=== PATIENT | female | born 1970 | race Hispanic/Latino ===

== ENCOUNTER 2017-03-07 06:25 | Emergency (ER) | payer BC ==
--- NOTE | 2017-03-07 06:35 | PCM.FALL ---
<Marina Salinas - Last Filed: 03/07/17 06:32> Post Fall Progress Note - Post Fall Fall Date: 03/07/17 Fall Time: 05:59 Description of Fall: Patient got lightheaded while watching her father get blood drawn and lost tone and consciousness - Post Fall Exam Skull Exam: Positive for: Scalp wound. Negative for: Scalp hematoma, Scalp depression, Ridge in skull Eye Exam: Positive for: Pupils equal, Pupils reactive Ear Exam: Negative for: Discharge, Bleeding Nose Exam: Negative for: Discharge, Bleeding Skin Exam: Negative for: Colour, Lacerations, Grazes, Bruising Mouth Exam: Negative for: Tongue bitten, Teeth dislodge Neck Exam: Negative for: Tenderness, Tingling, Weakness Spinal Exam: Negative for: Tenderness, Tingling, Weakness Chest Exam: Negative for: Difficulty breathing, Tenderness in collar bones, Tenderness in ribs Abdomen Exam: Negative for: Tenderness Arm Exam: Negative for: Deformity, Alteration in range of movement Leg Exam: Negative for: Deformity, Alteration in range of movement Impression/Plan: Patient taken to ER for further evaluation and management. Recommend head CT to r/o intracranial hematoma. Recommend neuro checks, orthostatic vitals, accucheck. <Vernon Winn - Last Filed: 03/07/17 06:38> Post Fall Progress Note - Post Fall Exam Vital Sign: Temp Pulse Resp BP Pulse Ox 97.5 F L 83 16 107/70 99 03/07/17 06:33 03/07/17 06:33 03/07/17 06:33 03/07/17 06:33 03/07/17 06:33 Attending/Attestation - Attestation I have personally seen and examined this patient.: Yes I have fully participated in the care of the patient.: Yes I have reviewed all pertinent clinical information, including history, physical exam and plan: Yes
[2017-03-07 06:38] VITALS: TEMP 97.5
[2017-03-07 07:56] LABS: BASO # 0.1 K/mm3 (0.0-2.0); BASO % 0.8 % (0.0-3.0); EOS # 0.3 (0.0-0.7); EOS % 2.7 % (1.5-5.0); GRAN # 7.04 (1.4-6.5); HEMOGLOBIN 12.6 g/dL (12.0-16.0); LYMPH # 4.2 (1.2-3.4); LYMPH % 33.2 % (22.0-35.0); MEAN CELL VOLUME 83.1 fl (80.0-105.0); MEAN CORPUSCULAR HEMOGLOBIN 27.3 pg (25.0-35.0); MEAN CORPUSCULAR HGB CONC 32.9 g/dl (31.0-37.0); MEAN PLATELET VOLUME 10.2 fl (7.0-11.0); MONO # 0.9 (0.1-0.6); MONO % 7.3 % (1.0-6.0); RBC 4.61 10^6/uL (3.5-6.1); RED CELL DISTRIBUTION WIDTH 13.9 % (11.5-14.5); WHITE BLOOD COUNT 12.6 10^3/ul (4.5-11.0)
[2017-03-07 07:59] VITALS: RESP 18; O2SAT 98
[2017-03-07 08:10] LABS: INR 1.09 (0.93-1.08); PARTIAL THROMBOPLASTIN TIME 27.1 Seconds (25.1-36.5)
--- NOTE | 2017-03-07 08:13 | ED PDOC ---
Arrival/HPI - General Chief Complaint: Dizziness/Lightheaded Time Seen by Provider: 03/07/17 07:21 Historian: Patient, Family (Sister) - History of Present Illness Narrative History of Present Illness (Text): 03/07/17 07:51 A 46 year old female, whose past medical history includes anxiety, depression, and panic attacks, presents to the emergency department s/p a syncopal episode. As per the patient, she was in the [facility] ICU caring for her father who is admitted , when she passed out and hit her head . As per the patient,a nurse began to draw her father's blood, and the patient states that all she recalls is feeling dizzy while her father's blood was being drawn and then waking up on the floor. As per the patient's sister, the nurses in the ICU stated that they herd a "thump" and came running in finding her sister on the floor. As per the sister, the nurses claim that the patient was down for about 10 seconds. The patient states that she has had syncopal episodes in the past, but has recovered quickly after. Currently, the patient states that she feels nauseous, is vomiting and experiencing diarrhea and a headache. Denies fevers, chills, chest pain, shortness of breath, dyspnea on exertion, cough, abdominal pain, back pain , neck pain, urinary/bowel changes, or any other complaint. Time/Duration: 1-3 hours Symptom Onset: Sudden Symptom Course: Unchanged Activities at Onset: Rest, Light Context: Other ([facility] ICU) Past Medical History - Provider Review Nursing Documentation Reviewed: Yes - Tetanus Immunization Tetanus Immunization: Unknown - Reproductive Menopause: No - Cardiac Hx Cardiac Disorders: No - Pulmonary Hx Respiratory Disorders: No - Neurological Hx Neurological Disorder: No - HEENT Hx HEENT Disorder: No - Renal Hx Renal Disorder: No - Endocrine/Metabolic Hx Endocrine Disorders: No - Hematological/Oncological Hx Blood Disorders: No - Integumentary Hx Dermatological Disorder: No - Musculoskeletal/Rheumatological Hx Falls: No - Gastrointestinal Hx Gastrointestinal Disorders: No - Genitourinary/Gynecological Hx Genitourinary Disorders: No Hx Reproductive Disorders: No - Psychiatric Hx Anxiety: Yes Hx Bipolar Disorder: Yes Hx Depression: Yes Hx Substance Use: No - Surgical History Hx Section: Yes - Anesthesia Hx Anesthesia: No - Suicidal Assessment Feels Threatened In Home Enviroment: No Family/Social History - Physician Review Nursing Documentation Reviewed: Yes Family/Social History: No Known Family HX Smoking Status: Smoker Currrent Status Unknown Hx Alcohol Use: No Hx Substance Use: No Hx Substance Use Treatment: No Allergies/Home Meds Allergies/Adverse Reactions: Allergies No Known Allergies Allergy (Verified 09/09/12 22:51) Home Medications: Home Meds Medication Instructions Recorded Confirmed Lurasidone Hydrochloride [Latuda] 40 mg PO DAILY 03/07/17 03/07/17 Sertraline [Zoloft] 50 mg PO DAILY 03/07/17 03/07/17 Review of Systems - Physician Review All systems were reviewed & negative as marked: Yes - Review of Systems Constitutional: absent: Fevers, Night Sweats Respiratory: absent: SOB, Cough Cardiovascular: absent: Chest Pain, VICK Gastrointestinal: Diarrhea, Vomiting. absent: Stool Changes Genitourinary Female: absent: Urine Output Changes Musculoskeletal: absent: Back Pain, Neck Pain Neurological: Headache, Dizziness Physical Exam Vital Signs Reviewed: Yes Vital Signs Temp Pulse Resp BP Pulse Ox 03/07/17 12:29 86 18 106/58 L 98 03/07/17 11:20 68 18 102/63 98 03/07/17 09:23 83 18 106/69 98 03/07/17 07:25 72 18 102/55 L 98 03/07/17 06:33 97.5 F L 83 16 107/70 99 Temperature: Hypothermic Blood Pressure: Normal Pulse: Regular Respiratory Rate: Normal Appearance: Positive for: Well-Appearing, Non-Toxic, Comfortable Pain Distress: None Mental Status: Positive for: Alert and Oriented X 3 Finger Stick Blood Glucose: 146 - Systems Exam Head: Present: Tenderness (Mild Tenderness to forehead), Swelling (Mild swelling to forehead.), Abrasion Pupils: Present: PERRL Extroacular Muscles: Present: EOMI Conjunctiva: Present: Normal Mouth: Present: Moist Mucous Membranes Neck: Present: Normal Range of Motion Respiratory/Chest: Present: Clear to Auscultation, Good Air Exchange. No: Respiratory Distress, Accessory Muscle Use Cardiovascular: Present: Regular Rate and Rhythm, Normal S1, S2. No: Murmurs Abdomen: Present: Normal Bowel Sounds. No: Tenderness, Distention, Peritoneal Signs Back: Present: Normal Inspection Upper Extremity: Present: Normal Inspection. No: Cyanosis, Edema Lower Extremity: Present: Normal Inspection. No: Edema Neurological: Present: GCS=15, CN II-XII Intact, Speech Normal Skin: Present: Warm, Dry, Normal Color. No: Rashes Psychiatric: Present: Alert, Oriented x 3, Normal Insight, Normal Concentration Medical Decision Making ED Course and Treatment: 03/07/17 08:15 Impression: A 46 year old female presents to the emergency department s/p a syncopal episode and landing on her head. Differential Diagnosis included but are not limited to: Syncope: cardiac vs. neurogenic. Plan: -- EKG -- Head CT -- Chest X-ray -- Labs -- Tylenol and Zofran -- Reassess and disposition Prior Visits: Notes and results from previous visits were reviewed. Patient was last seen in the emergency department on 11/21/16. The patient was seen in the emergency department for a PES Evaluation. The pateint was hospitalized. Progress Notes: EKG: Ordered, reviewed, and independently interpreted the EKG. Rate : 72 BPM Rhythm : NSR Interpretation : No ST-segment elevations or depressions, no T-wave inversions, normal intervals. Comparison : No previous EKG for comparison. CT HEAD WITHOUT CONTRAST. Dictator : Dr. Vázquez, Antonio RILEY Report Date : 03/07/2017 08:56:23 IMPRESSION: No acute findings 03/07/17 11:17 Patients lab works showed mildly elevated WBC. There is no reported fever, cough , urinary symptoms or any other concern for infection. Troponin is negative x 2. Patient has still denies any chest pain. She is no longer vomiting in the ED and tolerating PO fluids. She was observed in the ED with no evidence of any neurologic deficits. She was able to stand up with no dizziness or lightheadedness and walked through the ED. She has great PMD followup and her family will take her home. I advised her to please return to the ED if symptoms worsen or any other concern. I advised her to also follow up with a dressmaking teacher. Most likely her working diagnosis is vasovagal syncope. - Lab Interpretations Lab Results: 03/07/17 07:35 03/07/17 07:35 Lab Results 03/07/17 11:17: Troponin I < 0.01 03/07/17 07:40: Troponin I < 0.01 03/07/17 07:35: Sodium 141, Potassium 3.3 L, Chloride 105, Carbon Dioxide 23, Anion Gap 17, BUN 12, Creatinine 0.7, Est GFR ( Amer) > 60, Est GFR (Non- Af Amer) > 60, Random Glucose 166 H, Calcium 9.2, Total Bilirubin 0.5, AST 28, ALT 36, Alkaline Phosphatase 71, Total Protein 7.3, Albumin 4.2, Globulin 3.1, Albumin/Globulin Ratio 1.3 03/07/17 07:35: PT 12.0, INR 1.09 H, APTT 27.1 03/07/17 07:35: WBC 12.6 H D, RBC 4.61, Hgb 12.6, Hct 38.3, MCV 83.1, MCH 27.3, MCHC 32.9, RDW 13.9, Plt Count 341, MPV 10.2, Gran % 56.0, Lymph % (Auto) 33.2, Barn[place] % (Auto) 7.3 H, Eos % (Auto) 2.7, Baso % (Auto) 0.8, Gran # 7.04 H, Lymph # 4.2 H, Barnwell # 0.9 H, Eos # 0.3, Baso # 0.10 I have reviewed the lab results: Yes - RAD Interpretation Radiology Orders: 03/07/17 07:36 HEAD W/O CONTRAST [CT] Stat 03/07/17 08:27 CXR [CHEST PORTABLE] [RAD] Stat - EKG Interpretation Interpreted by ED Physician: Yes Type: 12 lead EKG - Medication Orders Current Medication Orders: Discontinued Medications Acetaminophen (Tylenol 325mg Tab) 650 mg PO STAT STA Stop: 03/07/17 07:39 Last Admin: 03/07/17 08:17 Dose: 650 mg [facility] Pain/Vitals Document 03/07/17 08:17 [facility] (Rec: 03/07/17 08:18 [facility] [id number]) Pain Reassessment Is This A Pain ReAssessment? No Re-Assess: BRITTNEY Pain/Vitals Document 03/07/17 09:17 [facility] (Rec: 03/07/17 09:23 [facility] [id number]) Pain Reassessment Is This A Pain ReAssessment? Yes Sleep Is patient sleeping during reassessment? No Presence of Pain Presence of Pain No Sodium Chloride (Sodium Chloride 0.9%) 1,000 mls @ 999 mls/hr IV .Q1H1M STA Stop: 03/07/17 10:02 Last Admin: 03/07/17 09:22 Dose: 999 mls/hr eMAR Start Stop Document 03/07/17 09:22 [facility] (Rec: 03/07/17 09:22 [facility] [id number]) Intravenous Solution Start Date 03/07/17 Start Time 09:22 End Date 03/07/17 End time 10:22 Total Infusion Time 60 Ondansetron HCl (Zofran Inj) 4 mg IVP STAT STA Stop: 03/07/17 07:51 Last Admin: 03/07/17 07:55 Dose: 4 mg IVP Administration Document 03/07/17 07:55 [facility] (Rec: 03/07/17 07:55 [facility] [id number]) Charges for Administration # of IVP Administrations 1 Potassium Chloride (K-Dur 20 Meq Er Tab) 40 meq PO STAT STA Stop: 03/07/17 09:03 Last Admin: 03/07/17 09:21 Dose: 40 meq - Scribe Statement The provider has reviewed the documentation as recorded by the King Coulter Provider Scribe Attestation: All medical record entries made by the Pbibabelardo were at my direction and personally dictated by me. I have reviewed the chart and agree that the record accurately reflects my personal performance of the history, physical exam, medical decision making, and the department course for this patient. I have also personally directed, reviewed, and agree with the discharge instructions and disposition. Disposition/Present on Arrival - Present on Arrival Any Indicators Present on Arrival: No History of DVT/PE: No History of Uncontrolled Diabetes: No Urinary Catheter: No History of Decub. Ulcer: No History Surgical Site Infection Following: None - Disposition Have Diagnosis and Disposition been Completed?: Yes Diagnosis: Syncope, Head injury Disposition: HOME/ ROUTINE Disposition Time: 11:17 Patient Plan: Discharge Condition: IMPROVED Discharge Instructions (ExitCare): Syncope (ED), Concussion (ED) Additional Instructions: Ms Zacarias, thank you for letting us take care of you today. Your provider was Dr. Preciado. You were treated for Vasovagal Syncope. The emergency medical care you received today was directed at your acute symptoms. If you were prescribed any medication, please fill it and take as directed. It may take several days for your symptoms to resolve. Return to the Emergency Department if your symptoms worsen, do not improve, or if you have any other problems. Please contact your doctor or call one of the physicians/clinics you have been referred to that are listed on the Patient Visit Information form that is included in your discharge packet. Bring any paperwork you were given at discharge with you along with any medications you are taking to your follow up visit. Our treatment cannot replace ongoing medical care by a primary care provider (PCP) outside of the emergency department. Thank you for allowing the [facility] team to be part of your care today. If you had an X-Ray or CT scan: A Radiologist will review the ED reading if any change in treatment is needed we will contact you. If you had a blood, urine, or wound culture: It will take several days for the results, if any change in treatment is needed we will contact you. If you had an STI test: It will take 48 hours for the results. Please call after 1 week if you have not heard back. Referrals: Osvaldo Stephenson MD [Staff Provider] - Follow up with primary Barry Bonilla MD [Staff Provider] - Follow up with primary Forms: [employer] (Greenlandic)
[2017-03-07 08:17] LABS: ALB/GLOB RATIO 1.3 (1.1-1.8); ALBUMIN 4.2 g/dL (3.0-4.8); ALT/SGPT 36 U/L (7-56); AST/SGOT 28 U/L (14-36); BLOOD UREA NITROGEN 12 mg/dL (7-21); CALCIUM 9.2 mg/dL (8.4-10.5); GFR AFRICAN-AMERICAN > 60; GFR NON-AFRICAN AMERICAN > 60
--- NOTE | 2017-03-07 08:57 | CT ---
PROCEDURE: CT HEAD WITHOUT CONTRAST. HISTORY: syncope COMPARISON: None available. TECHNIQUE: Axial computed tomography images were obtained through the head/brain without intravenous contrast. Radiation dose: Total exam DLP = 813 mGy-cm. This CT exam was performed using one or more of the following dose reduction techniques: Automated exposure control, adjustment of the mA and/or kV according to patient size, and/or use of iterative reconstruction technique. FINDINGS: HEMORRHAGE: No intracranial hemorrhage. BRAIN: No mass effect or edema. No atrophy or chronic microvascular ischemic changes. VENTRICLES: Unremarkable. No hydrocephalus. CALVARIUM: Unremarkable. PARANASAL SINUSES: Unremarkable as visualized. No significant inflammatory changes. MASTOID AIR CELLS: Unremarkable as visualized. No inflammatory changes. OTHER FINDINGS: None. IMPRESSION: No acute findings
[2017-03-07] MEDS ORDERED: Sodium Chloride 0.9% 1,000 ML IV STA (09:02)
[2017-03-07] MEDS ORDERED: Potassium Chloride 20 mEq ER Tab PO STA (09:02)
[2017-03-07 12:32] VITALS: BP 106/58; PULSE 86
--- NOTE | 2017-03-07 13:09 | RAD ---
HISTORY: syncope COMPARISON: No prior. FINDINGS: LUNGS: No active pulmonary disease. PLEURA: No significant pleural effusion identified, no pneumothorax apparent. CARDIOVASCULAR: Normal. OSSEOUS STRUCTURES: No significant abnormalities. VISUALIZED UPPER ABDOMEN: Normal. OTHER FINDINGS: None. IMPRESSION: No active disease.
--- NOTE | 2017-03-07 16:56 | CARD ---
APPROVED REPORT EKG Measurement Heart [id number] TX [id number] <Conclusion> Normal sinus rhythm Low voltage QRS Borderline ECG
== END 2017-03-07 12:32 | disposition home or self-care (01) ==
LOC: ED 06:25
DX: S06.9X1A Unspecified intracranial injury with loss of consciousness of 30 minutes or less, initial encounter (principal); W18.39XA Other fall on same level, initial encounter; Y92.230 Patient room in hospital as the place of occurrence of the external cause; R55 Syncope and collapse
CPT/HCPCS: 70450; 71010; 80053; 84484; 85025; 85610; 85730; 93005; 96361; 96374; 99285; J2405; J7040